=== PATIENT | male | born 1990 | race Caucasian/White ===

== ENCOUNTER 2020-03-04 14:58 | Emergency (ER) | payer SELFPAY ==
[2020-03-04 14:59] VITALS: BP 119/77; PULSE 98; RESP 18; TEMP 36.2; O2SAT 100; BMI 18.8
--- NOTE | 2020-03-04 15:13 | CT_ITS ---
WS: [id number] CT NECK WITH CONTRAST HISTORY: Pain/dental infection TECHNIQUE: Contiguous 5 mm axial images are performed through the neck with intravenous contrast. Sag ittal and coronal reformats are also submitted. All CT scans at [facility] use at least o ne of these dose optimization techniques: automated exposure control; mA and/or kV adjustment per pat ient size (includes targeted exams where dose is matched to clinical indication); or iterative recons truction. CONTRAST: CONTRAST: Omnipaque 300; 95 mL IV. DLP: 674.56 mGy.cm COMPARISON: None available. There is a very large amount of edema in the RIGHT oral pharynx. Edema starts in the RIGHT oropharynx and extends inferiorly to the level of the free edge of the RIGHT epiglottis. There is a large amoun t of edema in the RIGHT oropharyngeal soft tissues extending over length of 5 cm. There is also soft tissue edema thickening of the uvula. RIGHT vallecula is obliterated. There is additional foci of air just medial to the recently removed RIGHT molar. Soft tissue edema surrounds the hyoid bone. At this time there is some very mild mass effect upon the RIGHT oropharynx but no significant obstruction of the airway. Hyperemic enhancing RIGHT cervical lymph nodes. Largest lymph node at level 2A measures 12 mm. Level 1B lymph node is also enlarged and hyperemic measuring 7 mm. Lung apices are clear. CT/CT neck w con* [id number] IMPRESSION: 1. Large amount of oropharyngeal edema on the RIGHT extending over length of 5 cm to the level of the epiglottis. There is mild encroachment into the airway. No significant stenosis. 2. There is no well formed abscess collection but there is a lot of edema and foci of air just medial to the recently removed RIGHT tooth. Partially develope d phlegmon measures 15 x 10 mm adjacent to the recently removed RIGHT molar. 3. Hyperemic RIGHT cervical chain lymphadenopathy. Notified Bertha Patel at 03/04/2020 4:02 PM.
--- NOTE | 2020-03-04 15:22 | ED_ITS ---
HPI - Dental/Oral General: Chief complaint: Dental/Oral Stated complaint: TOOTH PULLED TUES AND NOW HAS SOB Time Seen by Provider: 03/04/20 15:09 Source: patient Mode of arrival: ambulatory Limitations: no limitations History of Present Illness: HPI Narrative: Nadeem is a 30-year-old male who comes in complaining of right lower dental pain after he had a tooth pulled by the dentist yesterday. States it hurts to open his mouth wide. Denies any fevers or chills. Is able to talk in complete sentences and able to handle all his own secretions. States it hurts to eat or drink. There has been no facial swelling or difficulty with speaking. Patient denies any nausea or vomiting. Patient is on antibiotics that he was prescribed yesterday but cannot remember the names of them. Associated symptoms: Denies ear or mastoid pain, fever(s), odynophagia or tongue swelling Review of Systems Const: Denies: fever(s), chills, body aches, fatigue, malaise or diaphoresis Eyes: Denies: change in vision, blurry vision, photophobia, eye discomfort, eye discharge, eye redness or yellow eyes ENMT: Reports: other (Dental pain from previously extracted teeth.); Denies: throat pain, odynophagia, hoarseness, swelling of lips/tongue, ear or mastoid pain, ear discharge, change in hearing or nasal discharge Card: Denies: chest pain, palpitations, irregular heart rhythm, edema, lightheadedness, syncope, pre-syncope, dyspnea on exertion or orthopnea Resp: Denies: dyspnea, productive cough, non-productive cough, wheezing, hemoptysis or chest congestion GI: Denies: abdominal pain, nausea, vomiting, hematemesis, coffee ground emesis, heartburn, diarrhea, constipation, GI cramping, hematochezia or melena : Denies: flank pain, dysuria, urinary frequency, urinary urgency or hematuria Musc: Denies: neck pain, back pain, extremity pain, extremity swelling, joint pain, joint swelling, joint redness, joint warmth or joint stiffness Skin/Breast: Denies: rash, pruritus, erythema, skin pain or skin tenderness Neuro: Denies: headache(s), numbness in extremities, weakness in extremities, sensory changes, lack of coordination, difficulty walking, dizziness, vertigo, confusion, Slurred speech present or seizure-like activity Akil/Lymph: Denies: easy bruising, easy bleeding, petechiae, purpura or enlarged lymph nodes All/Imm: Denies: urticaria, throat swelling, tongue swelling, facial swelling or acute wheezing PFSH ED PFSH: Medical History (Updated 03/04/20 @ 18:01 by Bertha Patel) No pertinent past medical history Physical Exam Const: COMMON NORMALS: no acute distress, patient oriented x3, no limitations and alert GENERAL APPEARANCE: cooperative HENMT: COMMON NORMALS: normocephalic, atraumatic, external ears normal, EAC's normal and Normal external nose present HEAD & SCALP: normal to inspection, normocephalic and atraumatic FACE & SINUS: normal facial exam and face symmetric NOSE: Normal external nose present and Normal nares present EXTERNAL EAR: Yes external ears normal EXTERNAL AUDITORY CANAL: EAC's normal MOUTH: Normal oral and palatal mucosa present, lip normal and tongue normal Eye: COMMON NORMALS: Equal, round and reactive pupils present and conjunctivae normal GENERAL EYE: appearance normal, both eyes and all related structures ALIGNMENT: Yes alignment normal PERIORBITAL: periorbital findings normal EYELID: eyelids normal CONJUNCTIVA: Yes conjunctivae normal SCLERA: sclerae normal PUPIL: Yes Equal, round and reactive pupils present Neck/C-Spine: COMMON NORMALS: full ROM, no lymphadenopathy, supple, no mening eal signs and no JVD GENERAL: Yes normal visual inspection and Yes trachea midline Chest: COMMONS NORMALS: normal inspection of the chest and normal palpation of entire chest wall Resp: COMMON NORMALS: normal respiratory effort, No retractions, No use of accessory muscles and clear to auscultation bilaterally EFFORT & INSPECTION: Yes able to speak in complete sentences and Yes symmetric chest movement AUSCULTATION: clear to auscultation bilaterally, no crackles, no rales, no rhonchi and no wheezes Cardio: COMMON NORMALS: no JVD, regular rate, regular rhythm, S1 normal heart sound present and S2 normal heart sound present RATE: regular rate RHYTHM: regular rhythm HEART SOUNDS: S1 normal heart sound present, S2 normal heart sound present, no click, no gallops, no murmurs and no rubs GI: COMMON NORMALS: Soft to palpation and No hepatosplenomegaly present PALPATION: Yes Soft to palpation, No Tenderness to palpation present (GI), No Guarding due to palpation present (GI), No Rigid due to palpation, Yes No hepatosplenomegaly present, No Hernia present, No Palpable mass present and No Pulsatile mass present : COMMON NORMALS: Yes no CVA tenderness BLADDER/KIDNEY EXAM: Yes no CVA tenderness Back/Pelvis: COMMON NORMALS: no CVA tenderness, thoracic and lumbar spine normal to inspection, no thoracic nor lumbar tenderness and thoraco-lumbar ROM normal Extremity: COMMON NORMALS: normal to inspection, full ROM, capillary refill normal, no joint enlargement, no clubbing, cyanosis or edema and no calf tenderness Neuro: COMMON NORMALS: patient oriented x3, CN's II-XII intact bilaterally, moves all extremities, no focal motor deficits and no sensory deficits noted SENSORIUM/ORIENTATION: Yes alert MENINGEAL SIGNS: Yes no meningeal signs SPEECH: speech normal Psych: COMMON NORMALS: mental status grossly normal, Normal thought process present, cooperative, normal affect, speech normal and activity/motor behavior normal SPEECH: Yes normal speech THOUGHT PROCESS: Normal thought process present Skin: COMMON NORMALS: no rashes or lesions noted, turgor normal, no jaundice, no petechiae and no mottling GENERAL SKIN EXAM: no rashes or lesions noted and turgor normal Course Vital Signs: Vital signs: Vital Signs Temperature 97.2 F L 03/04/20 14:59 Pulse Rate 83 03/04/20 18:00 Respiratory Rate 14 03/04/20 18:00 Blood Pressure 113/73 03/04/20 18:00 Pulse Oximetry 98 03/04/20 18:00 MDM - Dental/Oral MDM Narrative: Medical decision making narrative: 519 -the case was reviewed with Dr. Tyler at [facility]. He agrees accept the patient in transfer. They have a delayed acceptance at this time and they will let us know as soon as they can accept the patient. He agrees at this time with holding off intubation as the patient is handling his own secretions and not having any respiratory distress. Currently the patient is stable and feels like his pain is improved and his swelling is not progressing. [id number] -I reviewed the case with [facility] and they can accept the patient at this time. The case was reviewed with Dr. Arnold in the emergency department. She agrees accept the patient in transfer. Currently the patient is still maintaining his airway. He has no difficulty handling his own secretions. He has pain with swallowing but is able to swallow without difficulty. The patient is not in distress and has no sign of external swelling at this time. I will send him by air ambulance service so he can arrive earlier in case his symptoms progress but so far at this time his symptoms have not progressed while here in the ER. At this time I do not believe he would benefit from a prophylactic airway. 1839 - [facility] here to take the patient. He is stable. Still maintaining his airway. He said no progression of his swallowing or difficulty/painful swallowing handling own secretions. He still hypoxic with no respiratory distress. Is able to talk without any difficulty although he has very mild worsening since that has not progressed since arrival. Lab Data: Attestation: I reviewed the patient's lab results. Labs: Lab Results 03/04/20 03/04/20 03/04/20 Range/Units 15:30 15:30 15:30 WBC 16.4 H (4.0-10.0) 10^3/ uL RBC 4.97 (4.1-5.3) 10^6/u L Hgb 15.7 (11.7-16.6) g/dL Hct 48.2 (42.0-52.0) % MCV 97.0 H (80-94) fL MCH 31.6 (28.0-34.0) pg MCHC 32.6 (30.0-36.0) g/dL RDW 12.1 (12.1-15.1) % Plt Count 232 (130-400) 10^3/c mm MPV 9.8 (7.4-10.4) fL Neut % (Auto) 78.2 % Lymph % (Auto) 9.5 % Fajardo % (Auto) 10.8 % Eos % (Auto) 0.7 % Baso % (Auto) 0.4 % Neut # (Auto) 12.78 H (1.8-7.7) 10^3/u L Lymph # (Auto) 1.6 (0.8-4.8) 10^3/u L Fajardo # (Auto) 1.8 H (0.2-0.9) 10^3/u L Eos # (Auto) 0.1 (0.0-0.8) 10^3/u L Baso # (Auto) 0.1 (0.0-0.1) 10^3/u L Nucleated RBC % (a uto) 0 % Nucleated RBCs # 0.0 /100WBC Sodium Cancelled Potassium Cancelled Chloride Cancelled Carbon Dioxide Cancelled Anion Gap Cancelled BUN Cancelled Creatinine Cancelled GFR Calculation Cancelled Glucose Cancelled Calculated Osmolal ity Cancelled Lactic Acid 1.2 (0.5-2.2) mmol/L Calcium Cancelled Total Bilirubin Cancelled AST Cancelled ALT Cancelled Alkaline Phosphata se Cancelled Total Protein Cancelled Albumin Cancelled Globulin Cancelled 03/04/20 Range/Units 16:33 WBC (4.0-10.0) 10^3/ uL RBC (4.1-5.3) 10^6/u L Hgb (11.7-16.6) g/dL Hct (42.0-52.0) % MCV (80-94) fL MCH (28.0-34.0) pg MCHC (30.0-36.0) g/dL RDW (12.1-15.1) % Plt Count (130-400) 10^3/c mm MPV (7.4-10.4) fL Neut % (Auto) % Lymph % (Auto) % Fajardo % (Auto) % Eos % (Auto) % Baso % (Auto) % Neut # (Auto) (1.8-7.7) 10^3/u L Lymph # (Auto) (0.8-4.8) 10^3/u L Fajardo # (Auto) (0.2-0.9) 10^3/u L Eos # (Auto) (0.0-0.8) 10^3/u L Baso # (Auto) (0.0-0.1) 10^3/u L Nucleated RBC % (a uto) % Nucleated RBCs # /100WBC Sodium 134 L Potassium 4.0 Chloride 98 Carbon Dioxide 26 Anion Gap 14.0 BUN 13 Creatinine 0.9 GFR Calculation 98.4 Glucose 86 Calculated Osmolal ity 277 L Lactic Acid (0.5-2.2) mmol/L Calcium 8.7 Total Bilirubin 0.4 AST 20 ALT 13 Alkaline Phosphata se 70 Total Protein 6.7 Albumin 3.9 Globulin 2.8 Imaging Data^: CT Neck: Radiologist's impression: [facility] [address] [address] CT Scan Report Signed Patient: Nadeem Aleman Unit #: [id number] : 1990 Age/Sex: 30 / M ADM Date: 03/04/20 Loc: ER Room/Bed: Attending Dr: Ordering Provider/Ordering MD: Bertha Patel DO Date of Service: 03/04/20 Procedure(s): CT neck w con* [id number] Accession Number(s): [id number] Report Number: [id number] WS: [id number] CT NECK WITH CONTRAST HISTORY: Pain/dental infection TECHNIQUE: Contiguous 5 mm axial images are performed through the neck with intravenous contrast. Sagittal and coronal reformats are also submitted. All CT scans at [facility] use at least one of these dose optimization techniques: automated exposure control; mA and/or kV adjustment per patient size (includes targeted exams where dose is matched to clinical indication); or iterative reconstruction. CONTRAST: CONTRAST: Omnipaque 300; 95 mL IV. DLP: 674.56 mGy.cm COMPARISON: None available. There is a very large amount of edema in the RIGHT oral pharynx. Edema starts in the RIGHT oropharynx and extends inferiorly to the level of the free edge of the RIGHT epiglottis. There is a large amount of edema in the RIGHT oropharyngeal soft tissues extending over length of 5 cm. There is also soft tissue edema thickening of the uvula. RIGHT vallecula is obliterated. There is additional foci of air just medial to the recently removed RIGHT molar. Soft tissue edema surrounds the hyoid bone. At this time there is some very mild mass effect upon the RIGHT oropharynx but no significant obstruction of the airway. Hyperemic enhancing RIGHT cervical lymph nodes. Largest lymph node at level 2A measures 12 mm. Level 1B lymph node is also enlarged and hyperemic measuring 7 mm. Lung apices are clear. CT/CT neck w con* [id number] IMPRESSION: 1. Large amount of oropharyngeal edema on the RIGHT extending over length of 5 cm to the level of the epiglottis. There is mild encroachment into the airway. No significant stenosis. 2. There is no well formed abscess collection but there is a lot of edema and foci of air just medial to the recently removed RIGHT tooth. Partially developed phlegmon measures 15 x 10 mm adjacent to the recently removed RIGHT molar. 3. Hyperemic RIGHT cervical chain lymphadenopathy. Notified Bertha Patel at 03/04/2020 4:02 PM. Dictated By: Nicolette Wheeler DO Signed By: Nicolette Wheeler DO Signed Date/Time: 03/04/20 1605 DD/ 1553 Discharge Plan Discharge Patient Disposition: Xfer Short-Term Hosp Clinical Impression: Phlegmonous pharyngitis Condition: Stable Referrals: Cande Monique MD [Primary Care Provider] - Coding Level of Care Code ED License Clerk for Chg Fwd Exam Comprehensive
[2020-03-04 15:38] VITALS: RESP 16
[2020-03-04] MEDS: morphine 4 mg/mL SDV 1 mL IVP (15:38)
[2020-03-04] MEDS: ondansetron 2 mg/ML SDV 2 mL 4 MG IVP (15:38)
[2020-03-04] MEDS: sodium chloride 0.9% 1,000 ML 999 ML IV (15:39)
[2020-03-04 15:41] LABS: Basophils # 0.1 10^3/uL (0.0-0.1); Basophils % 0.4 %; Eosinophils # 0.1 10^3/uL (0.0-0.8); Eosinophils % 0.7 %; Hematocrit 48.2 % (42.0-52.0); Hemoglobin 15.7 g/dL (11.7-16.6); Lymphocytes # 1.6 10^3/uL (0.8-4.8); Lymphocytes % 9.5 %; Mean Corpuscular HGB Conc 32.6 g/dL (30.0-36.0); Mean Corpuscular Hemoglobin 31.6 pg (28.0-34.0); Mean Platelet Volume 9.8 fL (7.4-10.4); Monocytes # 1.8 10^3/uL (0.2-0.9); Monocytes % 10.8 %; Neutrophils # 12.78 10^3/uL (1.8-7.7); Neutrophils % 78.2 %; Nucleated Red Blood Cells % 0 %; Platelet Count 232 10^3/cmm (130-400); Red Blood Count 4.97 10^6/uL (4.1-5.3); Red Cell Distribution Width 12.1 % (12.1-15.1); White Blood Count 16.4 10^3/uL (4.0-10.0)
[2020-03-04] MEDS: clindamycin 900 MG/50 ML PREMIX 100 MG IV (15:41)
[2020-03-04] MEDS: iohexol 300 mg/mL 100 mL Btl IV (15:46)
[2020-03-04 16:02] LABS: Lactic Sepsis W/Reflex 1.2 mmol/L (0.5-2.2)
[2020-03-04 16:28] VITALS: BP 119/71; PULSE 93; RESP 16; O2SAT 99
[2020-03-04] MEDS: piperacillin-tazobactam 3.375 GM in sodium chloride 0.9% (plus) 50 ML IV (16:56)
[2020-03-04 17:00] VITALS: BP 122/75; PULSE 83; RESP 18; O2SAT 99
[2020-03-04 17:11] LABS: Alanine Aminotransferase 13 U/L (0-41); Albumin Level 3.9 g/dL (3.5-5.2); Alkaline Phosphatase 70 IU/L (40-130); Aspartate Amino Transferase 20 U/L (0-40); Blood Urea Nitrogen 13 mg/dL (6-20); Calcium 8.7 mg/dL (8.5-10.5); Carbon Dioxide 26 mmol/L (22-29); Chloride 98 mmol/L (98-107); Globulin 2.8 g/dL (1.3-4.6); Glomerular Filtration Rate 98.4 mL/min (90-130); Glucose 86 mg/dL (65-115); Osmolality Calculated 277 mOsm/kg (285-295); Sodium 134 mmol/L (136-145); Total Bilirubin 0.4 mg/dL (0.15-1.2); Total Protein 6.7 g/dL (6.6-8.7)
[2020-03-04] MEDS: dexamethasone 10 mg/mL INJ IVP (17:52)
[2020-03-04 18:00] VITALS: BP 113/73; PULSE 83; RESP 14; O2SAT 98
[2020-03-04 18:47] VITALS: BP 113/73; PULSE 84; RESP 18; TEMP 37.2; O2SAT 98
== END 2020-03-04 18:54 | disposition short-term general hospital (02) ==
PROVIDERS: Emergency Provider Emergency Medicine; PCP Family Medicine
DX: J02.9 Acute pharyngitis, unspecified (principal)
CPT/HCPCS: 12345; 36415; 70491; 80053; 83605; 85025; 96365; 96367; 96375; 96376; 99283; 99285; J0131; J1100; J2270; J2405; J2543; J3490; J7030; Q9967

== ENCOUNTER → 2023-12-13 13:26 | Outpatient (BNVA) | payer SELFPAY | PROVIDERS: PCP Family Medicine; Visit Provider Family Medicine | DX: M25.531 Pain in right wrist | CPT/HCPCS: 73110 ==

== ENCOUNTER 2023-12-22 21:55 | Emergency (ER) | payer SELFPAY ==
--- NOTE | 2023-12-22 21:57 | XRR_ITS ---
PROCEDURE INFORMATION: Exam: XR Right Wrist Exam date and time: 12/22/2023 10:15 PM Age: 33 years old Clinical indication: Pain and injury or trauma; Blunt trauma (contusions or hematomas); Right; Patient HX: Patient [place] skate park a week ago and braced himself from the fall with his hand. C/O worsening RT wrist pain. TECHNIQUE: Imaging protocol: Radiologic exam of the right wrist. Views: 3 or more views. COMPARISON: No relevant prior studies available. FINDINGS: Bones/joints: There is a nondisplaced intra-articular fracture through the radial styloid. Carpal bones and ulna are intact. Soft tissues: Minimal soft tissue swelling. XR/XR wrist RT min 3V* [id number] IMPRESSION: Nondisplaced intra-articular fracture through the radial styloid.
[2023-12-22 22:07] VITALS: BP 135/85; PULSE 86; RESP 17; TEMP 36.7; O2SAT 100; BMI 20.2
--- NOTE | 2023-12-22 22:29 | W.ED.EXTPRO ---
HPI - Extremity Problem General: Chief complaint: Extremity Injury, Upper Stated complaint: Right wrist injury Time Seen by Provider: 12/22/23 22:07 History of Present Illness: 33-year-old male patient comes in today for right wrist injury. Patient reports 1 week ago he had fell off his skateboard to catch himself with outstretched arm. Patient reports send since then he has had pain and discomfort to the right wrist when he has placed under stress. Patient appears nontoxic. Patient appears no pain. Review of Systems General: Reports: 10 or more systems reviewed and unremarkable except in HPI and below Musc: Reports: extremity pain [facility] ED PFS: Medical History (Updated 12/22/23 @ 22:31 by MATTIE Zheng) No pertinent past medical history Social History Smoking and tobacco/nicotine status: unknown if used tobacco/nicotine Physical Exam Const: COMMON NORMALS: alert HENMT: COMMON NORMALS: normocephalic HEAD & SCALP: normocephalic Neck/C-Spine: COMMON NORMALS: full ROM Resp: COMMON NORMALS: normal respiratory effort and clear to auscultation bilaterally AUSCULTATION: clear to auscultation bilaterally Cardio: COMMON NORMALS: regular rate RATE: regular rate Extremity: COMMON NORMALS: normal to inspection RIGHT UPPER EXTREMITY: Yes wrist (No snuffbox tenderness, no swelling,) Neuro: SENSORIUM/ORIENTATION: Yes alert Skin: COMMON NORMALS: turgor normal GENERAL SKIN EXAM: turgor normal Course Vital Signs: Vital signs: Vital Signs Temperature 98.1 F 12/22/23 22:07 Pulse Rate 86 12/22/23 22:07 Respiratory Rate 17 12/22/23 22:07 Blood Pressure 135/85 12/22/23 22:07 Pulse Oximetry 100 12/22/23 22:07 Oxygen Delivery Me thod Room Air 12/22/23 22:07 MDM - Extremity (Nontraumatic) Medical Decision Making 33-year-old male patient comes in today with right wrist injury. On exam patient has no significant tenderness and normal range of motion. Differential diagnosis includes sprain, fracture, dislocation. X-ray noted a nondisplaced radial styloid fracture. Patient was placed in a volar splint with follow-up orthopedics. Lab Data Radiology Impressions Wrist X-Ray 12/22/23 21:57 IMPRESSION: Nondisplaced intra-articular fracture through the radial styloid. All radiology interpretation(s) finalized by discharge Discharge Plan Discharge Patient Disposition: Home Clinical Impression: Closed fracture of radial styloid Qualifiers: Encounter type: initial encounter Fracture alignment: nondisplaced Laterality: right Qualified Code(s): S52.514A - Nondisplaced fracture of right radial styloid process, initial encounter for closed fracture Condition: Stable Discharge Orders: Discharge ED (Routine); Ordered 12/22/23 Ordered By: Foster Barnett Referrals: Cande Monique MD [Primary Care Provider] - Discharge Diet: Usual diet Discharge Activity: Increase activity as tolerated Patient Instructions: Wrist Fracture in Adults (ED) Activity Restrictions/Additional Instructions: Home and rest. Keep splint intact. Keep splint dry. Follow-up with academic program specialist for further treatment and evaluation. Return to ED for new concerns. Coding Level of Care Code ED Real Estate Appraiser Supervisor for Fany Zurita
--- NOTE | 2023-12-24 07:40 | DCPLANNER ---
Message sent to Ortho for a follow up - non displaced radial styloid fracture.
== END 2023-12-22 22:55 | disposition home or self-care (01) ==
PROVIDERS: Emergency Provider Nurse Practitioner Family; PCP Family Medicine
DX: S52.514A Nondisplaced fracture of right radial styloid process, initial encounter for closed fracture (principal); V00.131A Fall from skateboard, initial encounter
CPT/HCPCS: 73110; 99283